=== PATIENT | male | born 1965 | race African-American/Black ===

== ENCOUNTER 2019-03-02 05:18 | Emergency (ER) | payer MEDICARE, MEDICAID ==
[~2019-03-02] VITALS: Ht 175.3 cm; Wt 150.0 kg
[2019-03-02] MEDS ORDERED: MORPHINE SULFATE 4 MG/ML CPJ (NOT FOR IM USE) IV STA (05:37)
[2019-03-02] MEDS ORDERED: SODIUM CHLORIDE 0.9% 1,000 ML IV ONE (05:37)
[2019-03-02] MEDS ORDERED: ONDANSETRON HCL 4MG/2ML INJ IV STA (05:37)
[2019-03-02] MEDS ORDERED: KETOROLAC 30MG/ML VIAL IV STA (05:37)
[2019-03-02 06:37] LABS: CLARITY URINE CLEAR (CLEAR); COLOR URINE YELLOW (YELLOW); KETONES URINE NEGATIVE (NEGATIVE); LEUKOCYTE ESTERASE URINE NEGATIVE (NEGATIVE); NITRITE URINE NEGATIVE (NEGATIVE); OCCULT BLOOD URINE 2+ (NEGATIVE); PROTEIN URINE 2+ (NEGATIVE); SPECIFIC GRAVITY URINE 1.011 (1.005-1.030); UROBILINOGEN URINE 0.2 E.U./dL (0.2-1.0)
[2019-03-02 06:41] LABS: PARTIAL THROMBOPLASTIN TIME 24.7 sec (23.4-31.0); PROTHROMBIN TIME 10.2 sec (9.6-11.0)
[2019-03-02 06:47] LABS: BASOPHILS % 0.2 % (0.0-2.0); EOSINOPHILS % 0.7 % (0.0-5.0); HEMATOCRIT. 49.5 % (42.0-52.0); HEMOGLOBIN. 17.1 g/dL (14.0-18.0); LYMPHOCYTES % 28.1 % (20.0-50.0); MEAN CORPUSCULAR HEMOGLOBIN 30.6 pg (28.0-32.0); MEAN CORPUSCULAR VOLUME 88.7 fL (80.0-94.0); MEAN PLATELET VOLUME 9.7 fl (7.4-10.4); MONOCYTES % 6.8 % (2.0-8.0); NEUTROPHILS % 64.2 % (40.0-76.0); PLATELET 143 x1000/uL (130-400); RED BLOOD CELL COUNT 5.58 mill/uL (4.7-6.1); RED CELL DISTRIBUTION WIDTH 14.3 % (11.6-14.6)
[2019-03-02 06:51] LABS: *AMPHETAMINES SCREEN URINE NEGATIVE (NEGATIVE); *BARBITURATES SCREEN URINE NEGATIVE (NEGATIVE); *BENZODIAZEPINES SCREEN URINE NEGATIVE (NEGATIVE); *COCAINE SCREEN URINE NEGATIVE (NEGATIVE); METHADONE URINE SCREEN NEGATIVE (NEGATIVE); OPIATES URINE SCREEN NEGATIVE (NEGATIVE)
[2019-03-02 06:53] LABS: CANNABINOID URINE SCREEN NEGATIVE (NEGATIVE); PHENCYCLIDINE URINE SCREEN NEGATIVE (NEGATIVE)
[2019-03-02 07:10] LABS: CHLORIDE 107 mEq/L (98-107)
[2019-03-02 07:14] LABS: ETHANOL BLOOD < 10 mg/dL
[2019-03-02] MEDS ORDERED: LABETALOL HCL 100MG TABLET PO ONE (07:15)
[2019-03-02] MEDS ORDERED: POTASSIUM CHLORIDE 20MEQ TABLET SR PO ONE (07:45)
[2019-03-02] MEDS ORDERED: HYDROCODONE/ACETAMINOPHEN 5/325MG TABLET PO ONE (07:45)
[2019-03-02] MEDS ORDERED: AMLODIPINE 5MG TABLET PO ONE (08:45)
[2019-03-02 09:44] VITALS: BP 175/92
== END 2019-03-02 09:45 | disposition home or self-care (01) ==
LOC: ER 05:18
DX: N20.2 Calculus of kidney with calculus of ureter (principal); I16.0 Hypertensive urgency; F17.210 Nicotine dependence, cigarettes, uncomplicated; Z71.6 Tobacco abuse counseling; Z86.73 Personal history of transient ischemic attack (TIA), and cerebral infarction without residual deficits
CPT/HCPCS: 36415; 71045; 74176; 80053; 80305; 80320; 81003; 84484; 85025; 85610; 85730; 93005; 96374; 96375; 99284; 99406; J1885; J2270; J2405; J7030; G0480

== ENCOUNTER 2022-05-02 11:33 | Inpatient (IN) | payer OTHER, MEDICAID ==
[~2022-05-02] VITALS: Ht 167.6 cm; Wt 103.9 kg
[2022-05-02] MEDS ORDERED: METHYLPREDNISOLONE SOD SUCC 125 MG/2 ML VIAL IV STA (12:17)
[2022-05-02] MEDS ORDERED: IPRATROPIUM BROMIDE (0.02%) 0.5MG/2.5ML NEB HHN STA (12:17)
[2022-05-02] MEDS ORDERED: ALBUTEROL (0.083%) 2.5MG/3ML NEB HHN STA (12:17)
[2022-05-02 12:41] LABS: BASOPHILS % 0.7 % (0.0-2.0); EOSINOPHILS % 0.7 % (0.0-5.0); HEMATOCRIT. 50.9 % (42.0-52.0); HEMOGLOBIN. 17.1 g/dL (14.0-18.0); LYMPHOCYTES % 22.5 % (20.0-50.0); MEAN CORPUSCULAR HEMOGLOBIN 29.7 pg (28.0-32.0); MEAN CORPUSCULAR VOLUME 88.7 fL (80.0-94.0); MEAN PLATELET VOLUME 9.7 fl (7.4-10.4); MONOCYTES % 8.9 % (2.0-8.0); NEUTROPHILS % 67.2 % (40.0-76.0); PLATELET 131 x1000/uL (130-400); RED BLOOD CELL COUNT 5.74 mill/uL (4.7-6.1); RED CELL DISTRIBUTION WIDTH 15.8 % (11.6-14.6)
[2022-05-02 12:46] LABS: CHLORIDE 106 mEq/L (98-107)
[2022-05-02] MEDS ORDERED: ENALAPRIL 2.5MG/2ML VIAL 2ML IV ONE (13:30)
[2022-05-02] MEDS ORDERED: FUROSEMIDE 40MG/4ML VIAL IVP ONE (13:30)
[2022-05-02] MEDS ORDERED: ENALAPRIL 1.25MG/ML VIAL 1ML IV SCH (13:45)
[2022-05-02] MEDS ORDERED: POTASSIUM CHLORIDE 20MEQ TABLET SR PO SCH (14:15)
[2022-05-02] MEDS ORDERED: FUROSEMIDE 40MG/4ML VIAL IVP SCH (14:15)
[2022-05-02] MEDS: AMLODIPINE 10MG TABLET PO SCH (15:03)
[2022-05-02] MEDS: LOSARTAN POTASSIUM 50 MG TABLET PO SCH (15:03)
[2022-05-02] MEDS: FUROSEMIDE 40MG/4ML VIAL IVP SCH (15:30)
[2022-05-02] MEDS ORDERED: ENALAPRIL 1.25MG/ML VIAL 1ML IV NR (16:00)
[2022-05-02 16:01] LABS: CLARITY URINE CLEAR (CLEAR); COLOR URINE YELLOW (YELLOW); KETONES URINE NEGATIVE (NEGATIVE); LEUKOCYTE ESTERASE URINE NEGATIVE (NEGATIVE); NITRITE URINE NEGATIVE (NEGATIVE); OCCULT BLOOD URINE 1+ (NEGATIVE); PH URINE 6.5 (4.5-8.0); PROTEIN URINE 3+ (NEGATIVE); SPECIFIC GRAVITY URINE 1.014 (1.005-1.030)
[2022-05-02 16:28] LABS: *AMPHETAMINES SCREEN URINE NEGATIVE (NEGATIVE); *BARBITURATES SCREEN URINE NEGATIVE (NEGATIVE); *BENZODIAZEPINES SCREEN URINE NEGATIVE (NEGATIVE); *COCAINE SCREEN URINE NEGATIVE (NEGATIVE); CANNABINOID URINE SCREEN NEGATIVE (NEGATIVE); METHADONE URINE SCREEN NEGATIVE (NEGATIVE); OPIATES URINE SCREEN NEGATIVE (NEGATIVE); PHENCYCLIDINE URINE SCREEN NEGATIVE (NEGATIVE)
[2022-05-02 17:00] VITALS: BP 191/110
[2022-05-02 17:30] VITALS: BP 191/110
[2022-05-02] MEDS ORDERED: HYDRALAZINE 20MG/ML VIAL IV PRN (17:45)
[2022-05-02 18:00] VITALS: BP 160/96
[2022-05-02 20:00] VITALS: BP 121/80
[2022-05-02] MEDS ORDERED: METO25TA6 MT (21:06)
[2022-05-02] MEDS ORDERED: ATOR10TA69 MT (21:06)
[2022-05-02] MEDS ORDERED: CLOP-31 MT (21:06)
[2022-05-02] MEDS ORDERED: LISI2.5T47 MT (21:06)
[2022-05-02] MEDS ORDERED: IOHEXOL-350 100 ML BOTTLE ONE (21:21)
[2022-05-02] MEDS ORDERED: CLONIDINE 0.1MG TABLET PO PRN (22:00)
[2022-05-02] MEDS ORDERED: ACETAMINOPHEN 325MG TABLET PO PRN (22:00)
[2022-05-02] MEDS ORDERED: IPRATROPIUM/ALBUTEROL 0.5-3(2.5)MG/3ML NEB HHN PRN (22:00)
[2022-05-02] MEDS: METHYLPREDNISOLONE SOD SUCC 40 MG/ML VIAL IV SCH (23:11)
[2022-05-02] MEDS: ENOXAPARIN 100MG/ML SYR SUBCUT SCH (23:11)
[2022-05-03] VITALS: BP 135/86
[2022-05-03 04:00] VITALS: BP 140/85
[2022-05-03] MEDS: METHYLPREDNISOLONE SOD SUCC 40 MG/ML VIAL IV SCH (06:19)
[2022-05-03 06:27] LABS: HEMATOCRIT. 47.7 % (42.0-52.0); HEMOGLOBIN. 16.5 g/dL (14.0-18.0); MEAN CORPUSCULAR HEMOGLOBIN 30.2 pg (28.0-32.0); MEAN CORPUSCULAR VOLUME 87.4 fL (80.0-94.0); MEAN PLATELET VOLUME 9.6 fl (7.4-10.4); PLATELET 138 x1000/uL (130-400); RED BLOOD CELL COUNT 5.46 mill/uL (4.7-6.1); RED CELL DISTRIBUTION WIDTH 16.2 % (11.6-14.6)
[2022-05-03 07:40] LABS: CHLORIDE 106 mEq/L (98-107)
[2022-05-03 08:00] VITALS: BP 153/103
[2022-05-03] MEDS ORDERED: ENOXAPARIN 30MG/0.3ML SYR SUBCUT SCH (08:00)
[2022-05-03] MEDS: ENOXAPARIN 100MG/ML SYR SUBCUT SCH ×2 (08:49→21:42)
[2022-05-03] MEDS: LOSARTAN POTASSIUM 50 MG TABLET PO SCH (08:49)
[2022-05-03] MEDS: AMLODIPINE 10MG TABLET PO SCH (08:49)
[2022-05-03] MEDS: FUROSEMIDE 40MG/4ML VIAL IVP SCH (08:50)
[2022-05-03 12:00] VITALS: BP 120/74
[2022-05-03] MEDS ORDERED: CEFTRIAXONE 1 G PREMIX 50 ML IV SCH (14:15)
[2022-05-03 14:48] LABS: BG BASE EXCESS -0.1 mmol/L (-2.0-2.0); BG CARBOXYHEMOGLOBIN 0.2 % (0.5-1.5); BG FRACTION INSPIRED OXYGEN 21; BG HCO3 ACT 23.7 mmol/L (22.0-26.0); BG METHEMOGLOBIN 0.4 % (0.0-1.5); BG OXYHEMOGLOBIN 93.4 % (94.0-97.0); BG PCO2 36.2 mmHg (35.0-45.0); BG PH 7.433 (7.350-7.450); BG PO2 69.4 mmHg (75.0-100.0); BG SAMPLE SITE RIGHT RADIAL; BG TOTAL HEMOGLOBIN 17.4 g/dL (12.0-18.0); BG VENT MODE ROOM AIR
[2022-05-03 16:00] VITALS: BP 134/95
[2022-05-03] MEDS: CEFTRIAXONE 1,000 MG in DEXTROSE 5% WATER 50 ML IV SCH (18:30)
[2022-05-03 20:00] VITALS: BP 128/94
[2022-05-03] MEDS ORDERED: METHYLPREDNISOLONE SOD SUCC 40 MG/ML VIAL IV SCH (21:00)
[2022-05-03] MEDS: IPRATROPIUM/ALBUTEROL 0.5-3(2.5)MG/3ML NEB HHN SCH (21:04)
[2022-05-03 21:06] LABS: PLATELET ESTIMATE NORMAL
[2022-05-04] VITALS: BP 131/84
[2022-05-04] MEDS: IPRATROPIUM/ALBUTEROL 0.5-3(2.5)MG/3ML NEB HHN SCH ×4 (01:57→19:57)
[2022-05-04 04:00] VITALS: BP 122/82
[2022-05-04 06:49] LABS: CHLORIDE 107 mEq/L (98-107)
[2022-05-04 07:16] LABS: PROTHROMBIN TIME 11.2 sec (9.6-11.0)
[2022-05-04 08:00] VITALS: BP 163/106
[2022-05-04] MEDS: LOSARTAN POTASSIUM 50 MG TABLET PO SCH (08:36)
[2022-05-04] MEDS: FUROSEMIDE 40MG/4ML VIAL IVP SCH (08:36)
[2022-05-04] MEDS: ENOXAPARIN 100MG/ML SYR SUBCUT SCH ×2 (08:37→21:09)
[2022-05-04] MEDS: AMLODIPINE 10MG TABLET PO SCH (08:37)
[2022-05-04 12:00] VITALS: BP 112/74
[2022-05-04 16:00] VITALS: BP 126/76
[2022-05-04] MEDS: CEFTRIAXONE 1,000 MG in DEXTROSE 5% WATER 50 ML IV SCH (18:07)
[2022-05-04 20:00] VITALS: BP 98/51
[2022-05-04] MEDS ORDERED: CARVEDILOL 3.125 MG TABLET PO SCH (21:00)
[2022-05-05] VITALS: BP 127/76
[2022-05-05] MEDS: IPRATROPIUM/ALBUTEROL 0.5-3(2.5)MG/3ML NEB HHN SCH ×2 (01:20→14:20)
[2022-05-05 12:14] VITALS: BP 108/69
[2022-05-05 12:44] LABS: CHLORIDE 106 mEq/L (98-107)
[2022-05-05 13:12] LABS: BASOPHILS % 0.3 % (0.0-2.0); EOSINOPHILS % 0.5 % (0.0-5.0); HEMATOCRIT. 47.3 % (42.0-52.0); HEMOGLOBIN. 15.9 g/dL (14.0-18.0); LYMPHOCYTES % 30.1 % (20.0-50.0); MEAN CORPUSCULAR HEMOGLOBIN 30.2 pg (28.0-32.0); MEAN CORPUSCULAR VOLUME 89.6 fL (80.0-94.0); MEAN PLATELET VOLUME 9.6 fl (7.4-10.4); MONOCYTES % 9.7 % (2.0-8.0); NEUTROPHILS % 59.4 % (40.0-76.0); PLATELET 128 x1000/uL (130-400); RED BLOOD CELL COUNT 5.28 mill/uL (4.7-6.1); RED CELL DISTRIBUTION WIDTH 16.3 % (11.6-14.6)
[2022-05-05] MEDS ORDERED: LOSA50TA3 PO (15:04)
[2022-05-05] MEDS ORDERED: APIX5TAB MT (15:04)
[2022-05-05] MEDS ORDERED: FURO-151 MT (15:04)
[2022-05-05] MEDS ORDERED: COR3 PO (15:04)
[2022-05-05] MEDS ORDERED: AMLO10TA80 PO (15:04)
[2022-05-05] MEDS: CEFTRIAXONE 1,000 MG in DEXTROSE 5% WATER 50 ML IV SCH (16:15)
[2022-05-05 16:23] VITALS: BP 131/91
[2022-05-05 17:50] VITALS: BP 131/91
== END 2022-05-05 19:05 | disposition home or self-care (01) | DRG 175 ==
LOC: ER 11:33 → ENRESERV 14:44 → 6WST 15:30
PROVIDERS: ADMIT Internal Medicine; ATTEND Internal Medicine
DX: I26.99 Other pulmonary embolism without acute cor pulmonale (principal); J96.01 Acute respiratory failure with hypoxia; J44.1 Chronic obstructive pulmonary disease with (acute) exacerbation; D68.59 Other primary thrombophilia; I50.22 Chronic systolic (congestive) heart failure; I42.0 Dilated cardiomyopathy; I69.354 Hemiplegia and hemiparesis following cerebral infarction affecting left non-dominant side; N39.0 Urinary tract infection, site not specified; I82.412 Acute embolism and thrombosis of left femoral vein; I82.432 Acute embolism and thrombosis of left popliteal vein; R00.0 Tachycardia, unspecified; I11.0 Hypertensive heart disease with heart failure; E66.9 Obesity, unspecified; F17.210 Nicotine dependence, cigarettes, uncomplicated; F12.90 Cannabis use, unspecified, uncomplicated; Z20.822 Contact with and (suspected) exposure to COVID-19; Z71.6 Tobacco abuse counseling; Z68.37 Body mass index [BMI] 37.0-37.9, adult; Z82.49 Family history of ischemic heart disease and other diseases of the circulatory system
CPT/HCPCS: 36415; 36600; 71045; 71275; 80048; 80053; 80061; 80305; 81003; 82375; 82550; 82553; 82805; 83735; 83880; 84484; 85025; 85379; 87426; 93005; 93306; 93970; 94640; 99285; J0360; J0696; J1650; J1940; J2920; J2930; J3490; J7060; Q9967

== ENCOUNTER 2022-07-03 00:20 | Inpatient (IN) | payer OTHER, MEDICAID ==
[2022-07-03] VITALS (8 sets, daily range): BP systolic 127–176; BP diastolic 76–114
[~2022-07-03] VITALS: Ht 167.6 cm; Wt 108.9 kg
[~2022-07-03 00:20] MED LIST: AMLO10TA80 PO; APIX5TAB MT; ATOR10TA69 MT; COR3 PO; FURO-151 MT; LOSA50TA3 PO
[2022-07-03] MEDS ORDERED: METHYLPREDNISOLONE SOD SUCC 125 MG/2 ML VIAL IV ONE (01:00)
[2022-07-03] MEDS ORDERED: ALBUTEROL (0.083%) 2.5MG/3ML NEB HHN ONE (01:00)
[2022-07-03 01:12] LABS: BASOPHILS % 1.1 % (0.0-2.0); EOSINOPHILS % 1.4 % (0.0-5.0); HEMATOCRIT. 49.4 % (42.0-52.0); LYMPHOCYTES % 29.8 % (20.0-50.0); MEAN CORPUSCULAR HEMOGLOBIN 30.3 pg (28.0-32.0); MEAN CORPUSCULAR VOLUME 88.1 fL (80.0-94.0); MEAN PLATELET VOLUME 8.6 fl (7.4-10.4); MONOCYTES % 7.7 % (2.0-8.0); PLATELET 128 x1000/uL (130-400); RED BLOOD CELL COUNT 5.61 mill/uL (4.7-6.1); RED CELL DISTRIBUTION WIDTH 16.2 % (11.6-14.6)
[2022-07-03 01:18] LABS: CHLORIDE 107 mEq/L (98-107)
[2022-07-03] MEDS ORDERED: NITROGLYCERIN 50MG PREMIX 250ML IV NR (01:45)
[2022-07-03 02:59] LABS: BG BASE EXCESS -1.8 mmol/L (-2.0-2.0); BG CARBOXYHEMOGLOBIN 0.9 % (0.5-1.5); BG DEOXYHEMOGLOBIN 0.3 % (0.0-5.0); BG FRACTION INSPIRED OXYGEN 60; BG HCO3 ACT 22.6 mmol/L (22.0-26.0); BG METHEMOGLOBIN 0.6 % (0.0-1.5); BG OXYGEN SATURATION 99.7 % (92.0-98.5); BG OXYHEMOGLOBIN 98.2 % (94.0-97.0); BG PCO2 37.9 mmHg (35.0-45.0); BG PH 7.394 (7.350-7.450); BG PO2 228.6 mmHg (75.0-100.0); BG SAMPLE SITE RIGHT RADIAL; BG TOTAL HEMOGLOBIN 17.8 g/dL (12.0-18.0); BG VENT MODE MASK - BIPAP
[2022-07-03] MEDS ORDERED: FUROSEMIDE 40MG/4ML VIAL IVP ONE (03:00)
[2022-07-03] MEDS ORDERED: ONDANSETRON HCL 4MG/2ML INJ IV ONE (03:00)
[2022-07-03] MEDS ORDERED: CLONIDINE 0.1MG TABLET PO NR (09:15)
[2022-07-03] MEDS ORDERED: CLONIDINE 0.1MG TABLET PO PRN (09:15)
[2022-07-03] MEDS: LOSARTAN POTASSIUM 50 MG TABLET PO SCH (13:51)
[2022-07-03] MEDS: AMLODIPINE 10MG TABLET PO SCH (13:51)
[2022-07-03] MEDS: FUROSEMIDE 40MG/4ML VIAL IVP SCH (13:51)
[2022-07-03] MEDS: APIXABAN 5 MG TABLET PO SCH ×2 (13:51→23:47)
[2022-07-03] MEDS: METHYLPREDNISOLONE SOD SUCC 40 MG/ML VIAL IV SCH ×2 (15:39→23:47)
[2022-07-03] MEDS: ATORVASTATIN CALCIUM 10MG TABLET PO SCH (20:21)
[2022-07-03] MEDS: CARVEDILOL 3.125 MG TABLET PO SCH (20:21)
[2022-07-04] VITALS (13 sets, daily range): BP systolic 128–150; BP diastolic 81–100
[2022-07-04] MEDS: METHYLPREDNISOLONE SOD SUCC 40 MG/ML VIAL IV SCH (06:12)
[2022-07-04 06:38] LABS: BASOPHILS % 0.1 % (0.0-2.0); HEMATOCRIT. 44.3 % (42.0-52.0); HEMOGLOBIN. 15.3 g/dL (14.0-18.0); LYMPHOCYTES % 7.9 % (20.0-50.0); MEAN CORPUSCULAR HEMOGLOBIN 30.5 pg (28.0-32.0); MEAN CORPUSCULAR VOLUME 88.2 fL (80.0-94.0); MEAN PLATELET VOLUME 8.5 fl (7.4-10.4); MONOCYTES % 3.6 % (2.0-8.0); NEUTROPHILS % 88.4 % (40.0-76.0); PLATELET 131 x1000/uL (130-400); RED BLOOD CELL COUNT 5.02 mill/uL (4.7-6.1); RED CELL DISTRIBUTION WIDTH 15.6 % (11.6-14.6)
[2022-07-04 07:36] LABS: CHLORIDE 102 mEq/L (98-107)
[2022-07-04 07:38] LABS: CLARITY URINE CLEAR (CLEAR); COLOR URINE YELLOW (YELLOW); KETONES URINE TRACE (NEGATIVE); LEUKOCYTE ESTERASE URINE NEGATIVE (NEGATIVE); NITRITE URINE NEGATIVE (NEGATIVE); OCCULT BLOOD URINE NEGATIVE (NEGATIVE); PH URINE 5.5 (4.5-8.0); PROTEIN URINE TRACE (NEGATIVE); SPECIFIC GRAVITY URINE 1.024 (1.005-1.030); UROBILINOGEN URINE 0.2 E.U./dL (0.2-1.0)
[2022-07-04 07:49] LABS: PHOSPHORUS 4.3 mg/dL (2.5-4.9)
[2022-07-04] MEDS: LOSARTAN POTASSIUM 50 MG TABLET PO SCH (08:07)
[2022-07-04] MEDS: CARVEDILOL 3.125 MG TABLET PO SCH ×2 (08:07→20:48)
[2022-07-04] MEDS: APIXABAN 5 MG TABLET PO SCH ×2 (08:07→16:37)
[2022-07-04] MEDS: FUROSEMIDE 40MG/4ML VIAL IVP SCH ×3 (08:07→16:37)
[2022-07-04] MEDS: AMLODIPINE 10MG TABLET PO SCH (08:07)
[2022-07-04] MEDS ORDERED: LOSARTAN POTASSIUM 50 MG TABLET PO SCH (09:00)
[2022-07-04] MEDS ORDERED: AMLODIPINE 10MG TABLET PO SCH (09:00)
[2022-07-04] MEDS ORDERED: IOHEXOL-350 100 ML BOTTLE ONE (15:03)
[2022-07-04] MEDS: ATORVASTATIN CALCIUM 10MG TABLET PO SCH (20:47)
[2022-07-04 21:13] LABS: *AMPHETAMINES SCREEN URINE NEGATIVE (NEGATIVE); *BARBITURATES SCREEN URINE NEGATIVE (NEGATIVE); *BENZODIAZEPINES SCREEN URINE NEGATIVE (NEGATIVE); *COCAINE SCREEN URINE NEGATIVE (NEGATIVE); CANNABINOID URINE SCREEN NEGATIVE (NEGATIVE); METHADONE URINE SCREEN NEGATIVE (NEGATIVE); OPIATES URINE SCREEN NEGATIVE (NEGATIVE); PHENCYCLIDINE URINE SCREEN NEGATIVE (NEGATIVE)
[2022-07-04] MEDS: IPRATROPIUM/ALBUTEROL 0.5-3(2.5)MG/3ML NEB HHN SCH (21:15)
[2022-07-05] VITALS (15 sets, daily range): BP systolic 101–152; BP diastolic 61–104
[2022-07-05] MEDS: IPRATROPIUM/ALBUTEROL 0.5-3(2.5)MG/3ML NEB HHN SCH ×4 (01:02→20:28)
[2022-07-05 06:16] LABS: HEMATOCRIT. 45.7 % (42.0-52.0); HEMOGLOBIN. 15.6 g/dL (14.0-18.0); LYMPHOCYTES % 12.2 % (20.0-50.0); MEAN CORPUSCULAR VOLUME 87.7 fL (80.0-94.0); MEAN PLATELET VOLUME 8.6 fl (7.4-10.4); MONOCYTES % 7.3 % (2.0-8.0); NEUTROPHILS % 80.5 % (40.0-76.0); PLATELET 135 x1000/uL (130-400); RED BLOOD CELL COUNT 5.21 mill/uL (4.7-6.1)
[2022-07-05 07:58] LABS: CHLORIDE 101 mEq/L (98-107)
[2022-07-05] MEDS: FUROSEMIDE 40MG/4ML VIAL IVP SCH ×2 (09:21→16:58)
[2022-07-05] MEDS: AMLODIPINE 10MG TABLET PO SCH (09:21)
[2022-07-05] MEDS: LOSARTAN POTASSIUM 50 MG TABLET PO SCH (09:22)
[2022-07-05] MEDS: CARVEDILOL 3.125 MG TABLET PO SCH (09:22)
[2022-07-05] MEDS: APIXABAN 5 MG TABLET PO SCH ×2 (09:22→16:54)
[2022-07-05] MEDS: NICOTINE 14MG PATCH TD SCH (16:56)
[2022-07-05] MEDS: ACETAMINOPHEN 325MG TABLET PO PRN (16:56)
[2022-07-05] MEDS: ATORVASTATIN CALCIUM 10MG TABLET PO SCH (21:31)
[2022-07-06] VITALS (12 sets, daily range): BP systolic 110–159; BP diastolic 79–116
[2022-07-06] MEDS: IPRATROPIUM/ALBUTEROL 0.5-3(2.5)MG/3ML NEB HHN SCH ×4 (02:23→20:35)
[2022-07-06 06:35] LABS: BASOPHILS % 0.1 % (0.0-2.0); EOSINOPHILS % 0.3 % (0.0-5.0); HEMATOCRIT. 46.9 % (42.0-52.0); HEMOGLOBIN. 16.1 g/dL (14.0-18.0); MEAN CORPUSCULAR VOLUME 87.5 fL (80.0-94.0); MEAN PLATELET VOLUME 8.7 fl (7.4-10.4); MONOCYTES % 9.4 % (2.0-8.0); NEUTROPHILS % 63.2 % (40.0-76.0); PLATELET 126 x1000/uL (130-400); RED BLOOD CELL COUNT 5.36 mill/uL (4.7-6.1); RED CELL DISTRIBUTION WIDTH 15.7 % (11.6-14.6)
[2022-07-06 07:18] LABS: CHLORIDE 100 mEq/L (98-107)
[2022-07-06] MEDS: FUROSEMIDE 40MG/4ML VIAL IVP SCH ×2 (09:47→16:51)
[2022-07-06] MEDS: APIXABAN 5 MG TABLET PO SCH ×2 (09:47→16:51)
[2022-07-06] MEDS: LOSARTAN POTASSIUM 50 MG TABLET PO SCH ×2 (09:47→09:51)
[2022-07-06] MEDS: NICOTINE 14MG PATCH TD SCH (09:50)
[2022-07-06] MEDS: AMLODIPINE 10MG TABLET PO SCH (09:52)
[2022-07-06] MEDS ORDERED: APIX5TAB MT (12:15)
[2022-07-06] MEDS: ACETAMINOPHEN 325MG TABLET PO PRN (13:06)
[2022-07-06] MEDS: ATORVASTATIN CALCIUM 10MG TABLET PO SCH (22:07)
[2022-07-07 00:02] VITALS: BP 136/84
[2022-07-07 02:02] VITALS: BP 124/80
[2022-07-07] MEDS: IPRATROPIUM/ALBUTEROL 0.5-3(2.5)MG/3ML NEB HHN SCH (02:32)
[2022-07-07 04:02] VITALS: BP 158/117
[2022-07-07 06:02] VITALS: BP 140/96
[2022-07-07 07:47] VITALS: BP 132/75
== END 2022-07-07 07:15 | disposition home or self-care (01) | DRG 291 ==
LOC: ER 00:20 → 3WST 04:56 → EDBEDREQ 05:26 → EDBEDREQSVC 05:26 → EDBEDREQTM 05:26 → ENRESERV 07:53
PROVIDERS: ADMIT Internal Medicine; ATTEND Internal Medicine
PROC: 5A09357 Assistance with Respiratory Ventilation, Less than 24 Consecutive Hours, Continuous Positive Airway Pressure (ICD-10-PCS; principal; 2022-07-03)
DX: I11.0 Hypertensive heart disease with heart failure (principal); I26.99 Other pulmonary embolism without acute cor pulmonale; I50.23 Acute on chronic systolic (congestive) heart failure; J96.01 Acute respiratory failure with hypoxia; F17.210 Nicotine dependence, cigarettes, uncomplicated; E66.9 Obesity, unspecified; I25.10 Atherosclerotic heart disease of native coronary artery without angina pectoris; I42.0 Dilated cardiomyopathy; R00.0 Tachycardia, unspecified; I08.0 Rheumatic disorders of both mitral and aortic valves; J44.9 Chronic obstructive pulmonary disease, unspecified; T45.516A Underdosing of anticoagulants, initial encounter; Z20.822 Contact with and (suspected) exposure to COVID-19; Z86.73 Personal history of transient ischemic attack (TIA), and cerebral infarction without residual deficits; Z86.718 Personal history of other venous thrombosis and embolism; Z86.711 Personal history of pulmonary embolism; Z79.01 Long term (current) use of anticoagulants; Z91.14 Patient's other noncompliance with medication regimen; Y92.89 Other specified places as the place of occurrence of the external cause; Z82.49 Family history of ischemic heart disease and other diseases of the circulatory system; Z68.38 Body mass index [BMI] 38.0-38.9, adult; Z79.899 Other long term (current) drug therapy; Z71.3 Dietary counseling and surveillance
CPT/HCPCS: 36415; 36600; 71045; 71275; 80048; 80053; 80076; 80305; 81003; 82375; 82805; 83735; 83880; 84100; 84484; 85025; 87426; 93005; 93971; 94640; 94660; 99285; J1940; J2405; J2920; J2930; J3490; Q9967